=== PATIENT | male | born 1955 | race Caucasian/White ===

== ENCOUNTER 2017-11-28 15:53 | Outpatient (CLI) | payer OTHER, SELFPAY ==
[2017-11-28 16:13] LABS: Absolute Eosinophil Count 0.13 k/cumm (0.0-0.7); Absolute Lymphocyte Count 0.57 k/cumm (1.2-3.4); Absolute Monocyte Count 0.32 k/cumm (0.11-0.7); Absolute Neutrophil Count 2.31 k/cumm (1.2-6.7); Eosinophils % 3.9; HCT 43.2 % (40.0-50.0); HGB 14.4 g/dL (13.5-17.5); Lymphocytes % 17.1; Mean Corp. HGB Concentration 33.3 g/dL (32.0-36.0); Mean Corpuscular Hemoglobin 32.1 pg (27.0-33.0); Mean Corpuscular Volume 96.4 fL (80-95); Mean Platelet Volume 8.7 fL (8.0-11.0); Monocytes % 9.6; Neutrophils % 69.4; RBC 4.48 m/cumm (4.50-6.00); RBC Distribution Width 14.1 % (11.8-14.1); White Blood Cell Count 3.33 k/cumm (4.4-10.8)
[2017-11-28 16:27] LABS: ALT 25 U/L (12-78); AST 15 U/L (15-37); Alkaline Phosphatase 79 U/L (46-116); Anion Gap 5.5 mmol/L (3-11); BUN 16 mg/dL (7-18); Bilirubin, Total 0.5 mg/dL (0.2-1.0); CO2 30.5 mmol/L (21.0-32.0); CREATININE 1.03 mg/dL (0.70-1.30); Calcium 8.2 mg/dL (8.5-10.1); Chloride 108 mmol/L (98-107); Glucose 114 mg/dL (70-100); Potassium 4.2 mmol/L (3.5-5.1); Sodium 144 mmol/L (136-145); Total Protein 6.2 g/dL (6.4-8.2)
[2017-11-28 16:32] LABS: Platelet Count 82 x1000/uL (130-400)
== END 2017-11-28 16:13 ==
PROVIDERS: PCP Internal Medicine; Visit Provider Nurse Practitioner
DX: C71.9 Malignant neoplasm of brain, unspecified (principal)
CPT/HCPCS: 36415; 80053; 85025